=== PATIENT | female | born 1970 | race Two or more races ===

== ENCOUNTER 2017-01-31 17:16 | Emergency (ER) | payer MEDICAID ==
[~2017-01-31] VITALS: Ht 162.6 cm; Wt 68.0 kg
[2017-01-31] MEDS ORDERED: KETOROLAC TROMETH 60MG/2ML VIAL IM ONE (19:00)
[2017-01-31 19:39] VITALS: BP 133/87
== END 2017-01-31 20:03 | disposition home or self-care (01) ==
LOC: ER 17:16
DX: S93.401A Sprain of unspecified ligament of right ankle, initial encounter (principal); W17.89XA Other fall from one level to another, initial encounter; X50.0XXA Overexertion from strenuous movement or load, initial encounter; Y93.89 Activity, other specified; Y99.8 Other external cause status; Y92.89 Other specified places as the place of occurrence of the external cause
CPT/HCPCS: 29515; 73610; 96372; 99284; J1885